=== PATIENT | female | born 1960 | race Caucasian/White ===

== ENCOUNTER 2017-06-29 02:20 | Inpatient (IN) | payer OTHER ==
[~2017-06-29] VITALS: Ht 162.6 cm; Wt 108.9 kg
--- NOTE | ~2017-06-29 | H ---
[address] [address] HISTORY AND PHYSICAL Name: CHRISTOPH SANTO Room: [address] IN ..#: [id number] Admission: 06/29/17 Attend Phys: Kassandra Helms MD Discharge: Date of : 62 Report #: [id number] THIS REPORT FOR: //name// For History and Physical please refer to the electronic progress note in the patient's medical record. By: [id number] Records Staff HEMANTH /BHARTI
[~2017-06-29 02:20] MED LIST: ALBUTEROL2.5 MG/0.1; ALBUTEROL2.5 MG/31 INH; BROVANA15 MCG/2 M IH; DIABETA 2.5MG2.5 MG GT; FISH OIL 500 M1 EAC2 PO; GLUCOPHAGE500 MG PO; HYDROCODON-ACE1 EAC5 PO; IPRATROPIU0.2 MG/1 M IH; LEVAQUIN 500 M500 M2 PO; MULTI VITAMIN1 EACH PO; PREDNISONE 10 M10 M1 PO; PROAIR HFA8.5 GM INH; PULMICORT0.25 MG/2 IH; PULMICORT0.5 MG/2 M IH; SINGULAIR 10 MG10 M1 PO
[2017-06-29 02:21] VITALS: BP 128/70
[2017-06-29] MEDS ORDERED: GLYBURIDE 5 MG T5 M1 PO (02:28)
[2017-06-29 03:30] LABS: HEMATOCRIT 43.2 % (37.0-47.0); HEMOGLOBIN 14.7 gm/dL (12.0-15.0); MCH 32.2 pg (26.0-34.0); MCV 94.6 fL (80.0-100.0); MPV 7.5 fl. (7.2-11.1); NUCLEATED RBCS 0 /100WBC; PLATELET COUNT* 362 thou/uL (150-400); RBC 4.56 mil/uL (4.20-5.00); RDW-CV 12.5 % (10.5-14.5); WBC 14.9 thou/uL (4.0-11.0)
[2017-06-29 03:40] LABS: ANION GAP 5 mmol/L (7-16); BUN 25 mg/dL (7-18); CALCIUM 8.5 mg/dL (8.5-10.1); CHLORIDE 103 mmol/L (98-107); CO2 32 mmol/L (21-32); GLUCOSE 117 mg/dL (70-99); POTASSIUM 4.1 mmol/L (3.5-5.1); SODIUM 140 mmol/L (136-145)
[2017-06-29 03:47] LABS: ALBUMIN 3.3 g/dL (3.4-5.0); ALKALINE PHOSPHATASE 77 U/L (46-116); SGOT 15 U/L (15-37); SGPT 38 U/L (30-65); TOTAL BILIRUBIN 0.5 mg/dL (<0.1-1.0); TROPONIN-I LEVEL <0.06 ng/mL (<0.06)
[2017-06-29 05:04] LABS: URINE BILIRUBIN NEGATIVE (Negative); URINE BLOOD NEGATIVE (Negative); URINE CLARITY CLEAR; URINE COLOR YELLOW; URINE GLUCOSE-RANDOM NEGATIVE (Negative); URINE KETONES NEGATIVE (Negative); URINE LEUKOCYTES-REFLEX NEGATIVE (Negative); URINE NITRITE-REFLEX NEGATIVE (Negative); URINE PROTEIN NEGATIVE (Negative); URINE SPECIFIC GRAVITY 1.015 (1.005-1.030); URINE UROBILINOGEN 0.2 E.U./dl (0.2-1.0)
[2017-06-29 05:33] LABS: INFLUENZA A ANTIGEN None Detected (None Detect); INFLUENZA B ANTIGEN None Detected (None Detect)
[2017-06-29 06:17] LABS: ABSOLUTE BASOPHILS 0.3 thou/uL (0.0-0.2); ABSOLUTE EOSINOPHILS 0.1 thou/uL (0.0-0.7); ABSOLUTE LYMPHOCYTES 4.8 thou/uL (0.8-5.3); ABSOLUTE MONOCYTES 0.1 thou/uL (0.0-1.2); ABSOLUTE NEUTROPHILS 9.5 thou/uL (1.6-8.1); ATYPICAL LYMPHS 1 %
[2017-06-29 06:21] LABS: PLATELET ESTIMATE ADEQUATE
[2017-06-29 08:33] VITALS: BP 112/65
[2017-06-29 10:00] VITALS: BP 112/65
--- NOTE | 2017-06-29 16:36 | EKG ---
[place] [address] ELECTROCARDIOGRAM REPORT Name: CHRISTOPH SANTO Room: [address] ADM IN [facility].#: [id number] Admission: 06/29/17 Attend Phys: Kassandra Helms MD Discharge: Date of : 62 Report #: [id number] THIS REPORT FOR: //name// [facility] ED Test Date: 2017-06-29 Test Time: 02:27:34 Pat Name: CHRISTOPHESSENCE MONTEROER Department: Room: [facility] Gender: F Precision Dyer: TDM : 1960 Requested By: Yanet Massey Order Number: [id number] Reading MD: Darrick Singer Measurements Intervals Rebecca Rate: 91 P: 38 NM: 163 QRS: -19 QRSD: 98 T: 21 QT: 358 QTc: 441 Interpretive Statements Sinus rhythm Borderline left axis deviation Abnormal R-wave progression, late transition Compared to ECG 08/27/2013 14:26:57 Sinus tachycardia no longer present Myocardial infarct finding no longer present Electronically Signed On 06-29-2017 16:36:39 HAM CURER by Darrick Singer [email or web address] <ELECTRONICALLY SIGNED> By: Jaspal Singer MD, [facility] 06/29/17 1636 6 6 Jaspal Singer MD, [facility] /EPI
[2017-06-29 21:15] VITALS: BP 120/70
[2017-06-30 04:39] LABS: HEMATOCRIT 38.1 % (37.0-47.0); MCH 31.7 pg (26.0-34.0); MCHC 33.1 g/dL (28.0-37.0); MCV 95.8 fL (80.0-100.0); MPV 7.8 fl. (7.2-11.1); RBC 3.98 mil/uL (4.20-5.00); RDW-CV 12.4 % (10.5-14.5); WBC 15.4 thou/uL (4.0-11.0)
[2017-06-30 04:53] LABS: HEMOGLOBIN 12.6 gm/dL (12.0-15.0)
[2017-06-30 05:17] LABS: CALCIUM 8.3 mg/dL (8.5-10.1); CREATININE 0.6 mg/dL (0.6-1.3); POTASSIUM 4.4 mmol/L (3.5-5.1); TOTAL BILIRUBIN 0.5 mg/dL (<0.1-1.0); TOTAL PROTEIN 5.9 g/dL (6.4-8.2)
--- NOTE | 2017-06-30 06:12 | NUR ---
ALERT AND ORIENTED X4. UP AD YA IN ROOM WITH O2 AT 2L/NC. O2 SAT WHILE AT REST 95%. RECEIVING BREATHING TREATMENTS. NO C/O N/V OR PAIN. IVF INFUSING WITHOUT DIFFICULTY. CALL LIGHT WITHIN REACH. WILL CONTINUE TO MONITOR.
[2017-06-30 08:20] VITALS: BP 146/92
[2017-06-30 16:00] VITALS: BP 111/60
--- NOTE | 2017-06-30 17:07 | NUR ---
PATIENT ALERT AND ORIENTED X 4. VITAL SIGNS STABLE ON 2L O2 NASAL CANULA. WHEEZES NOTED WITH A NON-PRODUCTIVE COUGH. UP AD YA IN ROOM. IV PATENT AND FUIDS INFUSING. PATIENT REFUSED SCD'S. EDUCATED ON IMPORTANCE OF SCD'S. DENIES PAIN AND NAUSEA. HOURLY ROUNDS MAINTAINED THROUGHOUT THE SHIFT. CALL LIGHT WITHIN REACH. NURSING WILL CONTINUE TO MONITOR.
[2017-06-30 21:15] VITALS: BP 123/57
[2017-07-01 04:35] LABS: HEMATOCRIT 38.6 % (37.0-47.0); HEMOGLOBIN 12.8 gm/dL (12.0-15.0); MCHC 33.2 g/dL (28.0-37.0); MCV 96.4 fL (80.0-100.0); MPV 8.5 fl. (7.2-11.1); RDW-CV 12.5 % (10.5-14.5); WBC 13.3 thou/uL (4.0-11.0)
[2017-07-01 04:51] LABS: CALCIUM 8.1 mg/dL (8.5-10.1); CREATININE 0.6 mg/dL (0.6-1.3); POTASSIUM 4.5 mmol/L (3.5-5.1)
--- NOTE | 2017-07-01 05:57 | NUR ---
ALERT AND ORIENTED X4. UP AD YA IN ROOM WITH O2 AT 2L/NC. IVF INFUSING WITHOUT DIFFICULTY. RECEIVES BREATHING TREATMENTS. DENIES PAIN OR NAUSEA. HAS NONPRODUCTIVE COUGH. CALL LIGHT WITHIN REACH. O2 SAT 95%.
[2017-07-01 08:45] VITALS: BP 118/76
--- NOTE | 2017-07-01 14:34 | NUR ---
PT.ALERT AND ORIENTED. STATED SHE LIVES ALONE BUT HER SON HAS BEEN VERY SUPPORTIVE WHILE SHE HAS BEEN SICK. SHE LIVES IN AN APT[place]IN [place]. SHE HAS A NEBULIZER AT HOME. SHE GETS HER DIABETIC MEDS AND RESP.MEDS THROUGH [employer] THROUGH HER INSURANCE. SHE DOES NOT HAVE HOME O2. SHE HAS BEEN DISABLED FOR ABOUT 20 YEARS. SHE SAID BECAUSE OF HER BACK-SHE HAS DOUBLE CURVATURE OF THE SPINE AND HER COPD. DOES NOT HAVE A CAR. SHE HAS A REALLY GOOD FRIEND/NEIGHBOR THAT WILL GET HER MILK,A FEW GROCERIES IF SHE NEEDS THEM. CM WILL FOLLOW NEEDED.
[2017-07-01 16:00] VITALS: BP 130/67
--- NOTE | 2017-07-01 16:32 | NUR ---
PATIENT REMAINS ALERT AND ORIENTED. DENIES PAIN. DENIES SHORTNESS OF BREATH. O2 AT 2L. TOLERATING MEALS. PRODUCTIVE COUGH THIS AM. IV SALINE LOCKED. AMBULATING AD YA IN ROOM. DROPLET PRECAUTIONS IN PLACE DUE TO PENDING H1N1. CALL LIGHT WITHIN REACH. WILL CONTINUE TO MONITOR.
[2017-07-01 20:40] VITALS: BP 139/70
[2017-07-01 20:45] VITALS: BP 139/70
[2017-07-02 04:45] VITALS: BP 142/68
--- NOTE | 2017-07-02 06:04 | NUR ---
PATIENT HAS SLEPT WELL THROUGHOUT THE NIGHT WITHOUT ANY ISSUES. NO C/O PAIN. NO C/O SOA. VSS ON 2L 02 VIA NASAL CANNULA. PATIENT REMAINS ON DROPLET PRECAUTIONS D/T PENDING H1N1. PATIENT IS UP AD-YA AND STEADY. IV IN LEFT HAND-SL. PATIENT INSTRUCTED TO USE CALL LIGHT WHEN NEEDING ASSISTANCE. HOURLY ROUNDS MADE. WILL CONTINUE WITH PLAN OF CARE AND NURSING TO MONITOR.
[2017-07-02] MEDS ORDERED: LEVAQUIN 500 M500 M3 PO (08:21)
[2017-07-02] MEDS ORDERED: PREDNISONE 10 M10 M1 PO (08:21)
[2017-07-02 08:45] VITALS: BP 131/75
[2017-07-02 13:17] VITALS: BP 131/75
--- NOTE | 2017-07-02 14:30 | NUR ---
PT.TO DISCHARGE HOME TODAY. PER R.T.SATURATIONS, DID NOT QUALIFY FOR HOME O2.
[2017-07-02 14:43] VITALS: BP 131/75
--- NOTE | 2017-07-02 14:44 | NUR ---
PATIENT LEFT UNIT BY WHEELCHAIR AT 1445 WITH NURSING STAFF. IV DC'D. EDUCATED PATIENT AND FAMILY ON DISCHARGE INSTRUTIONS AND NEW MED SCRIPTS. PATIENT AND FAMILY VERBALIZED UNDERSTANDING. ALL BELONGINGS LEFT WITH PATIENT.
[2017-07-03 02:07] LABS: ADENOVIRUS Negative (Negative); INFLUENZA A Negative (Negative); INFLUENZA B Negative (Negative); METAPNEUMOVIRUS Negative (Negative); PARAINFLUENZA 1 Negative (Negative); PARAINFLUENZA 2 Negative (Negative); PARAINFLUENZA 3 Negative (Negative); RHINOVIRUS Negative (Negative); RSV A Negative (Negative); RSV B Negative (Negative)
== END 2017-07-02 14:46 | disposition home or self-care (01) | DRG 177 ==
LOC: M.ERS 02:20 → M.TBA-ER 05:55 → M.ORTHSURG 05:55 → M.ERS 08:34 → M.2W 09:05 → M.ORTHSURG 19:25
PROVIDERS: Emergency Medicine; ADMIT Internal Medicine
DX: J15.6 Pneumonia due to other Gram-negative bacteria (principal); J96.91 Respiratory failure, unspecified with hypoxia; J44.1 Chronic obstructive pulmonary disease with (acute) exacerbation; J44.0 Chronic obstructive pulmonary disease with (acute) lower respiratory infection; F17.210 Nicotine dependence, cigarettes, uncomplicated; K58.9 Irritable bowel syndrome, unspecified; K21.9 Gastro-esophageal reflux disease without esophagitis; E11.9 Type 2 diabetes mellitus without complications; Z79.899 Other long term (current) drug therapy; Z79.84 Long term (current) use of oral hypoglycemic drugs; Z88.6 Allergy status to analgesic agent; Z91.018 Allergy to other foods; Z90.49 Acquired absence of other specified parts of digestive tract; Z86.14 Personal history of Methicillin resistant Staphylococcus aureus infection; Z98.42 Cataract extraction status, left eye; Z98.41 Cataract extraction status, right eye